=== PATIENT | female | born 1945 ===

== ENCOUNTER 2021-01-05 07:30 | Inpatient (IN) | payer OTHER ==
[~2021-01-05] VITALS: Ht 162.6 cm; Wt 54.9 kg
[2021-01-05] MEDS ORDERED: SYNTHROID50 MCG PO (11:32)
[2021-01-07] MEDS ORDERED: MODAFINIL200 MG (08:24)
[2021-01-07] MEDS ORDERED: LIVALO2 MG (08:24)
[2021-01-07] MEDS ORDERED: CHLORTHALIDONE25 MG (08:24)
[2021-01-07] MEDS ORDERED: SERTRALINE HCL50 MG (08:24)
== END 2021-01-08 13:59 | disposition home or self-care (01) | DRG 743 ==
LOC: OB/GYN 01-06 07:30 → O/R 01-06 08:39 → OB/GYN 01-06 08:39
PROVIDERS: ADMIT Specialist; ATTEND Specialist
PROC: 0UT20ZZ Resection of Bilateral Ovaries, Open Approach (ICD-10-PCS; 2021-01-06)
PROC: 0UT70ZZ Resection of Bilateral Fallopian Tubes, Open Approach (ICD-10-PCS; 2021-01-06)
PROC: 0DBU0ZZ Excision of Omentum, Open Approach (ICD-10-PCS; 2021-01-06)
PROC: 0DTJ0ZZ Resection of Appendix, Open Approach (ICD-10-PCS; 2021-01-06)
PROC: 0UT90ZZ Resection of Uterus, Open Approach (ICD-10-PCS; principal; 2021-01-06 13:30)
DX: D27.1 Benign neoplasm of left ovary (principal); N94.89 Other specified conditions associated with female genital organs and menstrual cycle; N85.8 Other specified noninflammatory disorders of uterus; R59.9 Enlarged lymph nodes, unspecified; D20.1 Benign neoplasm of soft tissue of peritoneum; D12.1 Benign neoplasm of appendix